=== PATIENT | female | born 1935 | race Asian ===

== ENCOUNTER 2022-07-17 14:39 | Outpatient (REF) | payer MEDICARE, MEDICAID, SELFPAY ==
[2022-07-17 16:30] LABS: Alanine Aminotransferase 21 U/L (0-31); Albumin Level 4.3 g/dL (3.5-5.0); Alkaline Phosphatase 74 U/L (39-117); Anion Gap 13 (12-20); Aspartate Amino Transferase 17 U/L (5-31); Bilirubin Total 0.7 mg/dL (0.0-1.0); Blood Urea Nitrogen 11 mg/dL (9-16); Calcium 9.5 mg/dL (8.4-10.2); Carbon Dioxide 24 mmol/L (22-29); Chloride 105 mmol/L (96-108); Cholesterol 189 mg/dL; Estimated Glomerular Filt Rate 45; Glucose Random 85 mg/dL (60-115); HDL Cholesterol 29 mg/dL; LDL Cholesterol Calculated 88 mg/dl; Potassium 4.2 mmol/L (3.3-5.1); Sodium 138 mmol/L (135-145); Total Protein 8.3 g/dL (6.5-8.0); Triglycerides 364 mg/dL
[2022-07-17 16:59] LABS: Folate 3.8 ng/mL (> or = 4.0); Thyroid Stimulating Hormone 4.39 uIU/mL (0.32-4.0); Vitamin B12 196 pg/mL (200-900); Vitamin D 25-OH Total 11.5 ng/mL (>30)
[2022-07-20 07:18] LABS: TS Negative Control Passed; TS Panel A 30; TS Panel B 22; TS Positive Control Passed; TSpotTB Positive (Negative)
== END 2022-07-17 14:40 | disposition home or self-care (01) ==
LOC: HO.LAB 14:39
PROVIDERS: PCP Internal Medicine; Visit Provider Internal Medicine
DX: Z00.00 Encounter for general adult medical examination without abnormal findings (principal); F03.90 Unspecified dementia, unspecified severity, without behavioral disturbance, psychotic disturbance, mood disturbance, and anxiety; H91.90 Unspecified hearing loss, unspecified ear; I10 Essential (primary) hypertension
CPT/HCPCS: 36415; 80053; 80061; 82306; 82607; 82746; 84443; 86481

== ENCOUNTER 2022-09-27 14:16 | Outpatient (REF) | payer OTHER, MEDICAID, SELFPAY ==
--- NOTE | ~2022-09-27 | XR_ITS ---
EXAMINATION: XR HIP, RIGHT XR HIP. LEFT XR KNEE, RIGHT XR KNEE, LEFT CLINICAL INFORMATION: Bilateral hip and knee pain, history of osteoarthritis. No injury. COMPARISON: None available. TECHNIQUE: 2 views right hip, 2 views left hip, 2 views left knee, 2 views right knee. FINDINGS: The bones are diffusely demineralized. RIGHT HIP: Degenerative changes with mild joint space narrowing. Alignment is preserved. Bones are diffusely demineralized. Degenerative changes on limited views of the sacroiliac joint. LEFT HIP: Degenerative changes with mild joint space narrowing. Alignment is preserved. Bones are diffusely demineralized. Degenerative changes on limited views of the sacroiliac joint. RIGHT KNEE: Bones are diffusely demineralized. Trace joint effusion. Vascular calcifications present. Chondrocalcinosis in the lateral compartment. Small posterior patellar and lateral marginal osteophytes. Drgfnzzx-ln-xpxkwy degenerative changes medial compartment with joint space narrowing and medial marginal osteophytes. LEFT KNEE: Bones are diffusely demineralized. Status post left total knee arthroplasty. Hardware appears intact. Trace joint effusion. Alignment preserved. Vascular calcifications. XR/XR hip LT min 2V IMPRESSION: 1. Mild degenerative changes bilateral hips. 2. Advanced degenerative changes right knee. 3. Status post left knee total arthroplasty. Hardware appears intact. Additional imaging with CT scan or MRI should be considered for better visualization as these modalities are much more sensitive for detection of fracture or other underlying pathology.
--- NOTE | ~2022-09-27 | XR_ITS ---
EXAMINATION: XR HIP, RIGHT XR HIP. LEFT XR KNEE, RIGHT XR KNEE, LEFT CLINICAL INFORMATION: Bilateral hip and knee pain, history of osteoarthritis. No injury. COMPARISON: None available. TECHNIQUE: 2 views right hip, 2 views left hip, 2 views left knee, 2 views right knee. FINDINGS: The bones are diffusely demineralized. RIGHT HIP: Degenerative changes with mild joint space narrowing. Alignment is preserved. Bones are diffusely demineralized. Degenerative changes on limited views of the sacroiliac joint. LEFT HIP: Degenerative changes with mild joint space narrowing. Alignment is preserved. Bones are diffusely demineralized. Degenerative changes on limited views of the sacroiliac joint. RIGHT KNEE: Bones are diffusely demineralized. Trace joint effusion. Vascular calcifications present. Chondrocalcinosis in the lateral compartment. Small posterior patellar and lateral marginal osteophytes. Hchqjgic-ex-bivfbn degenerative changes medial compartment with joint space narrowing and medial marginal osteophytes. LEFT KNEE: Bones are diffusely demineralized. Status post left total knee arthroplasty. Hardware appears intact. Trace joint effusion. Alignment preserved. Vascular calcifications. XR/XR knee LT 2V IMPRESSION: 1. Mild degenerative changes bilateral hips. 2. Advanced degenerative changes right knee. 3. Status post left knee total arthroplasty. Hardware appears intact. Additional imaging with CT scan or MRI should be considered for better visualization as these modalities are much more sensitive for detection of fracture or other underlying pathology.
--- NOTE | ~2022-09-27 | XR_ITS ---
EXAMINATION: XR HIP, RIGHT XR HIP. LEFT XR KNEE, RIGHT XR KNEE, LEFT CLINICAL INFORMATION: Bilateral hip and knee pain, history of osteoarthritis. No injury. COMPARISON: None available. TECHNIQUE: 2 views right hip, 2 views left hip, 2 views left knee, 2 views right knee. FINDINGS: The bones are diffusely demineralized. RIGHT HIP: Degenerative changes with mild joint space narrowing. Alignment is preserved. Bones are diffusely demineralized. Degenerative changes on limited views of the sacroiliac joint. LEFT HIP: Degenerative changes with mild joint space narrowing. Alignment is preserved. Bones are diffusely demineralized. Degenerative changes on limited views of the sacroiliac joint. RIGHT KNEE: Bones are diffusely demineralized. Trace joint effusion. Vascular calcifications present. Chondrocalcinosis in the lateral compartment. Small posterior patellar and lateral marginal osteophytes. Omsdleyu-av-mzmdqe degenerative changes medial compartment with joint space narrowing and medial marginal osteophytes. LEFT KNEE: Bones are diffusely demineralized. Status post left total knee arthroplasty. Hardware appears intact. Trace joint effusion. Alignment preserved. Vascular calcifications. XR/XR knee RT 2V IMPRESSION: 1. Mild degenerative changes bilateral hips. 2. Advanced degenerative changes right knee. 3. Status post left knee total arthroplasty. Hardware appears intact. Additional imaging with CT scan or MRI should be considered for better visualization as these modalities are much more sensitive for detection of fracture or other underlying pathology.
--- NOTE | ~2022-09-27 | XR_ITS ---
EXAMINATION: XR HIP, RIGHT XR HIP. LEFT XR KNEE, RIGHT XR KNEE, LEFT CLINICAL INFORMATION: Bilateral hip and knee pain, history of osteoarthritis. No injury. COMPARISON: None available. TECHNIQUE: 2 views right hip, 2 views left hip, 2 views left knee, 2 views right knee. FINDINGS: The bones are diffusely demineralized. RIGHT HIP: Degenerative changes with mild joint space narrowing. Alignment is preserved. Bones are diffusely demineralized. Degenerative changes on limited views of the sacroiliac joint. LEFT HIP: Degenerative changes with mild joint space narrowing. Alignment is preserved. Bones are diffusely demineralized. Degenerative changes on limited views of the sacroiliac joint. RIGHT KNEE: Bones are diffusely demineralized. Trace joint effusion. Vascular calcifications present. Chondrocalcinosis in the lateral compartment. Small posterior patellar and lateral marginal osteophytes. Jpvckfkl-ss-vupaxn degenerative changes medial compartment with joint space narrowing and medial marginal osteophytes. LEFT KNEE: Bones are diffusely demineralized. Status post left total knee arthroplasty. Hardware appears intact. Trace joint effusion. Alignment preserved. Vascular calcifications. XR/XR hip RT min 2V IMPRESSION: 1. Mild degenerative changes bilateral hips. 2. Advanced degenerative changes right knee. 3. Status post left knee total arthroplasty. Hardware appears intact. Additional imaging with CT scan or MRI should be considered for better visualization as these modalities are much more sensitive for detection of fracture or other underlying pathology.
== END 2022-09-27 14:17 | disposition home or self-care (01) ==
LOC: HO.XRAY 14:16
PROVIDERS: PCP Internal Medicine; Visit Provider Internal Medicine
DX: M25.552 Pain in left hip (principal); M25.551 Pain in right hip; M25.562 Pain in left knee; M25.561 Pain in right knee; M19.90 Unspecified osteoarthritis, unspecified site
CPT/HCPCS: 73502; 73560

== ENCOUNTER 2023-01-15 13:38 | Outpatient (AMB) | payer OTHER, SELFPAY ==
[2023-01-15 14:00] VITALS: BP 130/70; PULSE 67; BMI 23.7
--- NOTE | 2023-01-15 14:00 | A.OFFVIS_ITS ---
Intake Vital Signs 01/15/23 14:00 Height 5 ft 1 in Weight 125 lb 10.616 oz BMI 23.7 BP 130/70 Blood Pressure Location Lt brachial Position Sitting Pulse 67 Intake Visit Reasons: NPV/SOB ASHD/P. Adlakha Intake Note: New patient c/o sob was seeing Cardio is CT Goodwill Representative: Goodwill Representative Present Accompanied by: Daughter Allergies No Known Allergies Allergy (Verified 01/15/23 14:10) Medication List - Last Reconciled 01/15/23 by Bobby Singh MD cholecalciferol (vitamin D3) 1,250 mcg PO QWEEK donepezil 10 mg PO BEDTIME furosemide 20 mg PO DAILY losartan 25 mg PO DAILY metoprolol succinate ER 25 mg PO DAILY omeprazole 20 mg PO DAILY triamcinolone acetonide 0.025% 1 appl topical DAILY HPI HPI Comments History of Present Illness Details Thank you for referring Melinda in cardiology consultation today for exertional shortness of breath. She is accompanied by her smhzfhnk-vk-nhr who is closely involved in her overall well-being. Patient lives with her while in [place]. Over the last few years she has had gradually increasing shortness of breath with significantly limiting shortness of breath walking short distance. As per the bjbtruji-ln-mbo she does not exercise much and has b een slowing down quite a bit. She also in the recent past has had increasing cognitive decline which is not been responsive to medical therapy. She has longstanding history of hypertension for many years which recently appears to be better controlled. She has been having increasing progressive shortness of breath walking short distance. When she walks a longer distance she also describes of chest discomfort. She is also limited long distance walking due to bilateral lower extremity discomfort. She does have peripheral vascular disease as noted by vascular ultrasound although this was felt to be nonocclusive by vascular surgery recently. She denies any lightheadedness, syncope, prolonged palpitations irregular heartbeat. She denies any orthopnea or PND. There is history of leg edema although currently on low-dose Lasix therapy. There is some mention of hypertrophic cardiomyopathy and prior murmur identified in her although do not have the exact reports of her echocardiogram from [facility] but was told that she had a gradient of about 70 mmHg. 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 She has never been hospitalized with heart failure. She has no prior lung issues. [facility] Surgical History Hx of knee surgery Family History Father CAD (coronary artery disease) Mother No problems noted. Social History Patient Tobacco Use Status: Never used Tobacco Review of Systems Const Denies chills, Denies daytime sleepiness, Denies fatigue, Denies fever(s), Denie s frequent falls, Denies poor appetite, Denies snoring, Denies stops breathing during sleep, Denies weakness, Denies weight gain and Denies weight loss Eyes Denies loss of vision ENT Denies dizziness and Denies hearing loss Card Denies chest pain, Denies claudication, Denies leg edema, Denies lightheadedness, Denies palpitations, Denies dyspnea, Denies dyspnea on exertion and Denies orthopnea Resp Denies cough, Denies excessive phlegm production, Denies dyspnea, Denies dyspnea on exertion, Denies snoring and Denies wheezing GI Denies abdominal pain, Denies hematochezia, Denies change in bowel habits, Denies nausea and Denies vomiting Denies urinary frequency and Denies dysuria Musc Denies arthralgias, Denies muscle weakness, Denies numbness and Denies other (frequent falls) Skin/Breast Denies nail changes and Denies rash Neuro Denies Abnormal speech present, Denies dizziness, Denies frequent falls, Denies loss of vision, Denies memory loss, Denies numbness and Denies weakness Psych Denies depression and Denies memory loss Endo Denies fatigue and Denies palpitations Dionte/Lymph Reports easy bruising and Reports other (anemia) Aller/Immun Denies wheezing Physical Exam Vital Signs: Last Vital Signs Pulse 67 01/15/23 14:00 BP 130/70 01/15/23 14:00 BMI result Body Mass Index 23.7 Const General: cooperative, comfortable, no acute distress, alert and awake Nutritional Appearance: thin and other (Frail elderly woman) Orientation/consciousness: patient oriented x3 Limitations: no limitations HEENT Head: Yes normocephalic and Yes atraumatic Neck Neck: Yes trachea midline, Yes supple and Yes no JVD Resp Effort & Inspection: normal respiratory effort Auscultation: clear to auscultation bilaterally Cardio Jugular venous distension: no JVD Palpation: normal PMI Rate: regular rate Rhythm: regular rhythm Heart sounds: S1 normal heart sound present, S2 normal heart sound present, no click, no gallops and Murmur heart sound present systolic early GI Auscultation: normal bowel sounds Skin General skin exam: no rashes or lesions noted Neuro General: patient oriented x3 and no focal motor deficits Speech: No Abnormal speech present Extrem General: Yes no clubbing, cyanosis or edema Office Procedures EKG Details: EKG shows normal sinus rhythm with voltage criteria for LVH with QS pattern in lead V1 V2 which may suggest prior septal infarct with ST elevation in V1 and V2 and diffuse ST T wave changes probably suggestive of repolarization abnormality 22986-[id number], Complete Assessment & Plan Assessment & Plan (1) SOB (shortness of breath) on exertion: Code(s): R06.02 - Shortness of breath Plan: Exertional shortness of breath in this elderly woman could be multifactorial. She has has slowly reduced exercise activity over many years and could be secondary to deconditioning in addition to reduce muscle mass and respiratory insufficiency related to that. She does not seem to have underlying pulmonary parenchymal disease although reduce respiratory mechanics related to muscle weakness can explain her shortness of breath. Also given her peripheral vascular disease and multiple risk factors there is high likelihood of underlying obstructive coronary artery disease. We discussed about further management with the myocardial perfusion imaging although the maqegptc-yq-zbx wants to pursue more conservative management. Given her advanced age, frailty and cognitive decline this may be an appropriate thought process. Other possibilities include advanced diastolic dysfunction and/or systolic dysfunction in this elderly woman and would suggest an echocardiogram which is a noninvasive test to assess for LV systolic and diastolic function and given that she may have underlying hypertensive heart disease and diastolic dysfunction that can easily explain her shortness of breath. Clinically today she appears to be euvolemic and well compensated. A blood pressure also seems to be well optimized on current therapy. Continue the same. I have encouraged to increase activity level as tolerated although she seems less inclined to pursue that. Advised to monitor blood pressure at home and maintain a log. Goal blood pressure less than 130/84. Low-salt diet was discussed which she is maintaining at this point in time. Signs and symptoms of heart failure were discussed. Will discuss the management with her granddaughter who is a mine geologist in [facility] to further get in insight and decide as to what workup V1 to pursue at this point time. Thank you for allowing me to partake in the care Orders: Orders CA echo transthoracic complete Today R06.02 - Shortness of breath Coding Level of Care Code New Pt Level 4 (43706) Diagnoses SOB (shortness of breath) on exertion R06.02 CPT Codes EKG - CPT: 93305-[id number], Complete ([id number])
== END 2023-01-15 14:42 | disposition home or self-care (01) ==
PROVIDERS: PCP Internal Medicine; Visit Provider Internal Medicine Cardiovascular Disease
DX: R06.02 Shortness of breath (principal)
CPT/HCPCS: 93010; 99204

== ENCOUNTER → 2023-01-15 13:38 | Outpatient (BNVA) | payer OTHER, MEDICAID, SELFPAY | PROVIDERS: PCP Internal Medicine; Visit Provider Internal Medicine Cardiovascular Disease | DX: R06.02 Shortness of breath (principal) | CPT/HCPCS: 93005; 99202 ==

== ENCOUNTER → 2023-02-12 12:54 | Outpatient (REF) | payer OTHER, SELFPAY ==
--- NOTE | 2023-02-12 13:05 | CA_ITS ---
Transthoracic Echocardiogram Patient (Last, First, Middle): Melinda Victoria, Gender: Female Date of : 1935 Age: 87 Procedure Date: 02/12/2023 Procedure Type: Transthoracic Echocardiogram Location: OP Height: 160.02 cm Weight: 58.97 kg BSA: 1.61 m2 Heart Rate: bpm BP: 145 / 65 mmHg Polymerization Kettle Operator: LILLY Referring MD: Bobby Singh MD Symptoms: R06.02 - Shortness of breath Study Quality: Fair, contrast ECG Rhythm: Sinus Conclusions: - The left ventricular systolic function is severely decreased. The visually estimated ejection fraction is between 25-30%. - The apical inferior, apical septum, and mid anteroseptal segments are akinetic. 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 - No obvious valvular pathology seen on this study. Findings Procedure Information Contrast agent, definity, is being given per protocol without apparent complications. Left Ventricle Mildly increased left ventricular cavity size. There is mildly increased left ventricular wall thickness. The left ventricular systolic function is severely decreased. The visually estimated ejection fraction is between 25 30%. There is evidence of regional wall motion abnormalities. Evidence suggests grade I (mild) diastolic dysfunction. No apical thrombus noted. Wall Motion Rest Echo Findings The apical inferior, apical septum, and mid anteroseptal segments are akinetic. 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 Right Ventricle Normal right ventricular cavity size and systolic function. Atria The left atrium is mildly dilated. The right atrium is normal in size. Aortic Valve There is a normal trileaflet aortic valve. There is no aortic valve stenosis. There is mild aortic valve regurgitation. Mitral Valve There is mild mitral annular calcification. There is no mitral valve regurgitation. There is no mitral valve stenosis. Pulmonic Valve The pulmonic valve is likely normal. Tricuspid Valve There is trace tricuspid valve regurgitation. There is no evidence of pulmonary hypertension. Great Vessels The asc aorta is normal in size. Venous The inferior vena cava is normal in size and collapses greater than 50% with inspiration. Pericardium/Pleural There is no evidence of pericardial effusion. Prior Study Comparison No prior study available for comparison. Recommendations, Care & Conclusions No obvious valvular pathology seen on this study. Results discussed with the referring physician. Measurements 2D Linear Measurements IVSd: 1.10 0.6-0.9/0.6-1.0 cm LVIDd: 5.37 3.9-5.3/4.2-5.9 cm LVIDd Index: 3.34 2.4-3.2/2.2-3.1 cm/m2 LVIDs: 4.71 2.0-3.6 cm LVPWd: 1.29 0.7-1.1 cm LA Diam: 3.60 2.7-3.8/3.0-4.0 cm LAIDs Index: 2.24 1.5-2.3 cm/m2 LV Mass: 324.93 67-162/88-224 g LV Mass Index: 201.82 43-95/49-115 g/m2 LVOT Diam: 1.80 3.0+(-)1.3 cm 2D Systolic Function EF 4C: 37.60 >55% EF 2C: 19.70 >55% EF BiP: 32.10 >55% Mitral Valve MV Pk E: 0.47 MV PK A: 1.15 MV Decel Time: 323.00 E/A: 0.40 E'Lateral: 2.83 E'Medial: 1.96 E/E' Med: 24.00 E/E' Lat: 16.60 PHT: 95.00 MVA PHT: 2.32 Decel [place]: 1.46 Aortic Valve AoV Pk Silvino: 1.70 AoV Mn Silvino: 1.13 AoV VTI: 0.37 AoV Pk Grad: 12.00 Aov Mn Grad: 6.00 MELISSA Cont.VTI: 1.65 AI Pk Silvino: 4.00 AI VTI: 2.49 AI [place]: 1.73 AI Alias Silvino: 0.36 AI RV - PISA: 5.00 ERO - PISA: 2.00 LVOT LVOT Pk Silvino: 1.22 LVOT Mn Silvino: 0.74 LVOT VTI: 0.24 LVOT Pk Grad: 6.00 LVOT Mn Grad: 3.00 LVOT Diam: 1.80 LVOT Area: 2.54 Diastolic Function MV Pk E: 0.47 MV Pk A: 1.15 E/A: 0.40 E'Medial: 1.96 E/E' Med: 24.00 E' Laterial: 2.83 E/E' Lat: 16.60 Right Ventricle TAPSE (mm): 16.90 TVS' Silvino: 14.70 Tricuspid Valve TR Pk Silvino: 1.85 TR Pk Grad: 14.00 RA Press: 3.00 RVSP: 17.00 Great Vessels Aorta Sinus of Valsalva: 2.95 2.0-3.[address] [place]: 2.43 1.7-3.4 cm Ao Asc: 3.40 2.1-3.4 cm Updated in Other Vendor System with Status of Final Brett Cohen MD electronically signed on 02/12/2023 3:31:09 PM with status of Final
== END ==
LOC: HO.CARD 12:54
PROVIDERS: PCP Internal Medicine; Visit Provider Internal Medicine Cardiovascular Disease
DX: R06.02 Shortness of breath (principal)
CPT/HCPCS: 93306; Q9957

== ENCOUNTER → 2023-02-12 13:05 | Outpatient (BNV) | payer OTHER, SELFPAY | PROVIDERS: PCP Internal Medicine; Visit Provider Internal Medicine | DX: I34.81 Nonrheumatic mitral (valve) annulus calcification (principal) | CPT/HCPCS: 93306 ==

== ENCOUNTER 2023-11-26 12:22 | Outpatient (AMB) | payer OTHER, SELFPAY ==
[2023-11-26 13:03] VITALS: BP 130/64; PULSE 56; BMI 24.2
--- NOTE | 2023-11-26 13:03 | A.OFFVIS_ITS ---
Vital Signs 11/26/23 13:03 Height 5 ft 1 in Weight 127 lb 13.89 oz BMI 24.2 BP 130/64 Blood Pressure Location Lt brachial Position Sitting Pulse 56 Intake Visit Reasons: fu appt (back from [place]) never had stress Intake Note: Follow-up never had stress test went to [facility] (there was a in the family) c/o sob and weak Computer Information Science Professor Required: Yes Computer Information Science Professor Services: Computer Information Science Professor Offered & Declined Leisure Studies Professor: Leisure Studies Professor Present Accompanied by: Daughter Allergies No Known Allergies Allergy (Verified 01/15/23 14:10) Medication List - Last Reconciled 11/26/23 by Bobby Singh MD donepezil 10 mg PO BEDTIME furosemide 20 mg PO DAILY losartan 25 mg PO DAILY metoprolol succinate ER 25 mg PO DAILY mirtazapine 7.5 mg PO BEDTIME olanzapine 2.5 mg PO BEDTIME omeprazole 20 mg PO DAILY trazodone 50 mg PO BEDTIME PRN triamcinolone acetonide 0.025% 1 appl topical DAILY HPI Comments Details: Melinda comes for follow-up after a long gap. She did not undergo a stress test and was in [place] for many months. She recently returned. Continues to exertional shortness of breath but has minimal functionality as per the joomlmhb-ms-ckb with whom she stays. She has no orthopnea, PND. Recently had COVID about a month ago was hospitalized and subsequently due to her mental issues discharged against medical advice. She is taking all her medications. No overt leg edema. No chest pain symptoms. Continues to have steady mild cognitive decline. No palpitations, lightheadedness, syncope. [facility] Surgical History Hx of knee surgery Family History Father CAD (coronary artery disease) Mother No problems noted. Social History Patient Tobacco Use Status: Never used Tobacco Review of Systems Const Denies chills, Denies fatigue, Denies fever(s), Denies frequent falls, Denies weakness, Denies weight gain and Denies weight loss ENT Denies dizziness Card Denies chest pain, Denies leg edema, Denies lightheadedness, Denies palpitations, Denies dyspnea, Denies dyspnea on exertion, Denies orthopnea and Denies other (loss of consciousness) Resp Denies cough, Denies dyspnea and Denies dyspnea on exertion GI Denies hematochezia and Denies change in stool character Musc Denies abnormal gait, Denies muscle weakness, Denies numbness, Denies radiating pain into limb and Denies tingling Neuro Denies abnormal gait, Reports confusion, Denies dizziness, Denies frequent falls, Denies numbness, Denies tingling and Denies weakness Psych Reports confusion Endo Denies fatigue and Denies palpitations Physical Exam Vital Signs: Last Vital Signs Pulse 56 11/26/23 13:03 BP 130/64 11/26/23 13:03 BMI result Body Mass Index 24.2 Const General: cooperative, comfortable, alert, awake and confusion Nutritional Appearance: average body habitus Orientation/consciousness: confusion Limitations: no limitations Neck Neck: Yes trachea midline, Yes supple and Yes no JVD Resp Effort & Inspection: normal respiratory effort Auscultation: clear to auscultation bilaterally Cardio Jugular venous distension: no JVD Palpation: abnormal PMI displaced PMI Rate: regular rate Rhythm: regular rhythm Heart sounds: S1 normal heart sound present, S2 normal heart sound present, no click, no gallops, no murmurs and no rubs GI Auscultation: normal bowel sounds Skin General skin exam: no rashes or lesions noted Neuro General: no focal motor deficits and confusion Extrem General: Yes no clubbing, cyanosis or edema Assessment & Plan Assessment & Plan (1) Ischemic cardiomyopathy: Code(s): I25.5 - Ischemic cardiomyopathy Category: Medical Plan: Severe ischemic cardiomyopathy suggestion of myocardial infarction in the LAD territory. Unknown duration of myocardial infarction. High likelihood of underlying obstructive CAD. However given her advanced age, frailty as well as cognitive abnormality would suggest that she would be manage conservatively. In the past. Discussed about starting Entresto therapy although she was planning to travel to [place] and just recently returned back from [place]. I will discuss with the granddaughter who is a physician about initiating Entresto therapy for ischemic cardiomyopathy to replace losartan as niacin that reduce his risk of hospitalization. Clinically does appear to be in heart failure or fluid overloaded. Continue current diuretic regimen. Continue current metoprolol t herapy for neurohormonal modulation. Signs and symptoms of heart failure were discussed with [id number]-hp-cev. We discussed about further workup in terms of evaluation for ischemic cardiomyopathy although it appears that she already suffered LAD territory infarct and possibly has underlying multivessel disease. Likelihood of benefit from revascularization given her age and comorbidities are low and probably at a higher complication rate. Will follow up with her in 6 months time, sooner p.r.n.. Thank you for allowing me to partake in his care Coding Level of Care Code Est Pt Level 4 (45535) Diagnoses Ischemic cardiomyopathy I25.5
== END 2023-11-26 13:42 | disposition home or self-care (01) ==
PROVIDERS: PCP Internal Medicine; Visit Provider Internal Medicine Cardiovascular Disease
DX: I25.5 Ischemic cardiomyopathy (principal)
CPT/HCPCS: 93010; 99214

== ENCOUNTER → 2023-11-26 12:22 | Outpatient (BNVA) | payer OTHER, SELFPAY | PROVIDERS: PCP Internal Medicine; Visit Provider Internal Medicine Cardiovascular Disease | DX: I25.5 Ischemic cardiomyopathy (principal) | CPT/HCPCS: 93005; 99212 ==